=== PATIENT | male | born 1995 | race African-American/Black ===

== ENCOUNTER 2017-06-21 15:06 | Emergency (ER) | payer BC, OTHER ==
[2017-06-21 15:16] VITALS: BP 158/90
--- NOTE | 2017-06-21 16:15 | ER Document Report ---
HPI - HPI Patient complains to provider of: right pinky finger pain Onset: Yesterday Onset/Duration: Sudden Quality of pain: Throbbing Severity: Moderate Pain Level: 3 Context: Patient states he slammed his pinky finger in the door last night. Complains of pain and swelling Associated Symptoms: None Exacerbated by: Movement Relieved by: Remaining still Similar symptoms previously: No Recently seen / treated by doctor: No - ROS ROS below otherwise negative: Yes Systems Reviewed and Negative: Yes All other systems reviewed and negative - CONSTITUTIONAL Constitutional: DENIES: Fever - EENT EENT: DENIES: Congestion - NEURO Neurology: DENIES: Headache - CARDIOVASCULAR Cardiovascular: DENIES: Chest pain - RESPIRATORY Respiratory: DENIES: Trouble Breathing - GASTROINTESTINAL Gastrointestinal: DENIES: Abdominal Pain - MUSCULOSKELETAL Musculoskeletal: REPORTS: Extremity pain - Right pinky finger - DERM Skin Color: Ecchymosis Past Medical History - General Information source: Patient - Social History Smoking Status: Never Smoker Frequency of alcohol use: Occasional Drug Abuse: None Lives with: Family Family History: Hypertension - Dad on meds at age 38. Mom does not have HTN. - Medical History Medical History: Negative Surgical Hx: Negative - Immunizations Hx Diphtheria, Pertussis, Tetanus Vaccination: Yes Vertical Provider Document - CONSTITUTIONAL Agree With Documented VS: Yes Exam Limitations: No Limitations General Appearance: WD/WN, No Apparent Distress - INFECTION CONTROL TRAVEL OUTSIDE OF THE [place] IN LAST 30 DAYS: No - HEENT HEENT: Atraumatic, Normocephalic - RESPIRATORY Respiratory: Breath Sounds Normal, No Respiratory Distress O2 Sat by Pulse Oximetry: 100 - CARDIOVASCULAR Cardiovascular: Regular Rate, Regular Rhythm - MUSCULOSKELETAL/EXTREMETIES Musculoskeletal/Extremeties: Tender, Edema, Eccymosis Notes: Base of right pinky finger and distal fifth metacarpal. - NEURO Level of Consciousness: Awake, Alert, Appropriate Notes: Neurovascular and sensation intact to extremity. - DERM Integumentary: Warm, Dry Course - Re-evaluation Re-evalutation: 06/21/17 16:51 X-ray negative and discussed with patient. - Vital Signs Vital signs: Temp Pulse Resp BP Pulse Ox 98.8 F 85 16 158/90 H 100 06/21/17 15:16 06/21/17 15:16 06/21/17 15:16 06/21/17 15:16 06/21/17 15:16 Procedures - Immobilization Right Finger Pre-Proc Neuro Vasc Exam: Normal Immobilizer type: Finger splint (Static) Performed by: PCT Post-Proc Neuro Vasc Exam: Normal Alignment checked and good: Yes Discharge - Discharge Clinical Impression: Contusion of right little finger Qualifiers: Encounter type: initial encounter Damage to nail status: without damage Qualified Code(s): S60.051A - Contusion of right little finger without damage to nail, initial encounter Condition: Good Disposition: HOME, SELF-CARE Additional Instructions: Ice and elevate hand Ibuprofen as needed for pain Follow-up with your doctor if not better in 1 week Return as needed Forms: Return to Work
--- NOTE | 2017-06-21 16:31 | RADIOLOGY REPORT (SQ) ---
EXAM DESCRIPTION: HAND RIGHT 3 VIEWS COMPLETED DATE/TIME: 06/21/2017 4:20 pm REASON FOR STUDY: pinky finger injury and pain COMPARISON: None. EXAM PARAMETERS: NUMBER OF VIEWS: Three views. TECHNIQUE: AP, lateral and oblique radiographic images acquired of the right hand. LIMITATIONS: None. FINDINGS: MINERALIZATION: Normal. BONES: No acute fracture or dislocation. No worrisome bone lesions. JOINTS: No effusions. SOFT TISSUES: No soft tissue swelling. No foreign body. OTHER: No other significant finding. IMPRESSION: NEGATIVE STUDY OF THE RIGHT HAND. NO RADIOGRAPHIC EVIDENCE OF ACUTE INJURY. TECHNICAL DOCUMENTATION: JOB ID: [id number] [employer]- All Rights Reserved
== END 2017-06-21 17:20 | disposition home or self-care (01) ==
LOC: ER 15:06
PROC: 2W3JX1Z Immobilization of Right Finger using Splint (ICD-10-PCS; principal; 2017-06-21)
DX: S60.051A Contusion of right little finger without damage to nail, initial encounter (principal); M79.644 Pain in right finger(s); M79.89 Other specified soft tissue disorders; W23.0XXA Caught, crushed, jammed, or pinched between moving objects, initial encounter
CPT/HCPCS: 99283

== ENCOUNTER 2018-02-24 13:15 | Emergency (ER) | payer SELFPAY ==
[2018-02-24 13:25] VITALS: BP 140/70
[2018-02-24] MEDS ORDERED: KETOROLAC TROMETHAMINE 60 MG/2 ML SDV IM ONE (13:44)
--- NOTE | 2018-02-24 13:48 | ER Document Report ---
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 No cough no fever chills or other constitutional symptoms. Onset: As above gradual Duration: As above Severity: Moderate Quality: Sharp Context: As above Exacerbating factor and relieving factors: Activity REVIEW OF SYSTEMS: CONSTITUTIONAL : Denies fever, chills, or sweats. Denies recent illness. EENT: Denies eye, ear, throat, or mouth pain or symptoms. Denies nasal or sinus congestion or discharge. Denies throat, tongue, or mouth swelling or difficulty swallowing. CARDIOVASCULAR: Denies chest pain. Denies palpitations or racing or irregular heart beat. Denies ankle edema. RESPIRATORY: Denies cough, cold, or chest congestion. Denies shortness of breath, difficulty breathing, or wheezing. GASTROINTESTINAL: Denies distention. Denies nausea, vomiting, or diarrhea. Denies blood in vomitus, stools, or per rectum. Denies black, tarry stools. Denies constipation. GENITOURINARY: Denies difficulty urinating, painful urination, burning, frequency, blood in urine, or discharge. FEMALE GENITOURINARY: Denies vaginal bleeding, heavy or abnormal periods, irregular periods. Denies vaginal discharge or odor. MUSCULOSKELETAL: Denies back or neck pain or stiffness. Denies joint pain or swelling. SKIN: Denies rash, lesions or sores. HEMATOLOGIC : Denies easy bruising or bleeding. LYMPHATIC: Denies swollen, enlarged glands. NEUROLOGICAL: Denies confusion or altered mental status. Denies passing out or loss of consciousness. Denies dizziness or lightheadedness. Denies headache. Denies weakness or paralysis or loss of use of either side. Denies problems with gait or speech. Denies sensory loss, numbness, or tingling. Denies seizures. PSYCHIATRIC: Denies anxiety or stress. Denies depression, suicidal ideation, or homicidal ideation. ALL OTHER SYSTEMS REVIEWED AND NEGATIVE. PHYSICAL EXAMINATION: GENERAL: Well-appearing, well-nourished and in no acute distress. HEAD: Atraumatic, normocephalic. EYES: Pupils equal round and reactive to light, extraocular movements intact, conjunctiva are normal. ENT: Nares patent, oropharynx clear without exudates. Moist mucous membranes. NECK: Normal range of motion, supple without lymphadenopathy LUNGS: Breath sounds clear to auscultation bilaterally and equal. No wheezes rales or rhonchi. HEART: Regular rate and rhythm without murmurs Right chest wall tenderness noted ABDOMEN: Soft, nontender, nondistended abdomen. No guarding, no rebound. No masses appreciated. Examination of genitals-deferred Musculoskeletal: Normal range of motion, no pitting or edema. No cyanosis. Right low back tenderness as well as muscle spasm noted NEUROLOGICAL: Cranial nerves grossly intact. Normal speech, normal gait. Normal sensory, motor exams PSYCH: Normal mood, normal affect. SKIN: Warm, Dry, normal turgor, no rashes or lesions noted. Dictation was performed using [employer] voice recognition software TRAVEL OUTSIDE OF THE [place] IN LAST 30 DAYS: No - HPI Notes: Dictated - Related Data Allergies/Adverse Reactions: No Known Allergies Allergy (Unverified 06/21/17 15:07) Past Medical History - Social History Smoking Status: Never Smoker Frequency of alcohol use: Rare Drug Abuse: None Lives with: Family Family History: Reviewed & Not Pertinent, Hypertension - Dad on meds at age 38. Mom does not have HTN. Patient has suicidal ideation: No Patient has homicidal ideation: No Renal/ Medical History: Denies: Hx Peritoneal Dialysis - Immunizations Hx Diphtheria, Pertussis, Tetanus Vaccination: Yes Review of Systems - Review of Systems Notes: Dictated Physical Exam - Vital signs Vitals: Temp Pulse Resp BP Pulse Ox 98.7 F 85 18 140/70 H 100 02/24/18 13:22 02/24/18 13:22 02/24/18 13:22 02/24/18 13:22 02/24/18 13:22 - Notes Notes: Dictated Course - Vital Signs Vital signs: Temp Pulse Resp BP Pulse Ox 98.7 F 85 18 140/70 H 100 02/24/18 13:22 02/24/18 13:22 02/24/18 13:22 02/24/18 13:22 02/24/18 13:22 Discharge - Discharge Clinical Impression: LOWER BACK SPRAIN, Chest wall pain Condition: Fair Disposition: HOME, SELF-CARE Instructions: Anti-Inflammatory Medication ([facility]), Chest Wall Pain ([facility]), Low Back Pain ([facility]) Prescriptions: Baclofen [Baclofen 20 Mg Tablet] 20 mg PO TID #30 tablet Ibuprofen 600 mg PO QID #30 tablet
== END 2018-02-24 14:03 | disposition home or self-care (01) ==
LOC: ER 13:15
DX: S33.5XXA Sprain of ligaments of lumbar spine, initial encounter (principal); M54.5 Low back pain; X58.XXXA Exposure to other specified factors, initial encounter; R07.89 Other chest pain
CPT/HCPCS: 99283; 96372; J1885

== ENCOUNTER 2020-06-12 11:14 | Emergency (ER) | payer OTHER ==
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
[2020-06-12 13:19] VITALS: BP 147/88
== END 2020-06-12 13:23 | disposition home or self-care (01) ==
LOC: ER 11:14
DX: M79.604 Pain in right leg (principal); V87.7XXA Person injured in collision between other specified motor vehicles (traffic), initial encounter
CPT/HCPCS: 99282